=== PATIENT | male | born 1980 | race Caucasian/White ===

== ENCOUNTER 2021-11-15 12:18 | Emergency (ER) | payer OTHER ==
[2021-11-15 13:51] LABS: HEMOGLOBIN 14.4 gm/dl (14.0-17.5); RED BLOOD COUNT 4.33 M/UL (4.20-5.50); WHITE BLOOD COUNT 5.5 K/UL (4.5-11.0)
[2021-11-15 14:18] LABS: BUN/CREATININE RATIO 15 (0-10)
== END 2021-11-15 15:34 | disposition home or self-care (01) ==
LOC: ER1 12:18
PROVIDERS: Physician Assistant
DX: R10.9 Unspecified abdominal pain (principal); R10.812 Left upper quadrant abdominal tenderness; R10.814 Left lower quadrant abdominal tenderness; F17.200 Nicotine dependence, unspecified, uncomplicated
CPT/HCPCS: 80053; 81001; 85025; 96374; 96375; 99284; J2270; J2405; Q9967